=== PATIENT | male | born 2005 | race Caucasian/White ===

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

== ENCOUNTER 2025-04-01 22:09 | Emergency (ER) | payer OTHER, SELFPAY ==
[2025-04-01 22:17] VITALS: BP 162/87; PULSE 88; TEMP 36.8; O2SAT 97; BMI 24.3
--- NOTE | 2025-04-01 22:34 | CT_ITS ---
The [address] [address] Patient Name: WILL ESPITIA MRN: [id number] date: 2005 Sex: M Assigned Patient Location: ER Current Patient Location: ED.MAIN Accession/Order Number: [id number] Exam Date: 04/01/2025 23:02 Report Date: 04/01/2025 23:51 At the request of: TIMI BOWERS MD Procedure: CT head/brain wo con CT BRAIN WITHOUT CONTRAST: CLINICAL HISTORY: hit head on ground while wrestling COMPARISON: None TECHNIQUE: Contiguous axial unenhanced images were obtained through the brain. This CT exam was performed using one or more following dose reduction techniques: Automated exposure control, adjustment of the mA and/or kV according to patient size, or use of iterative reconstruction technique. FINDINGS: There is no evidence of midline shift, intra or extra-axial fluid collection, hemorrhage or CT evidence of of acute large vascular distribution stroke. Visualized intraorbital contents appear unremarkable. Visualized paranasal sinuses are clear. The surrounding soft tissues are normal. CT/CT head/brain wo con IMPRESSION: NO ACUTE INTRACRANIAL ABNORMALITY. Impression dictated by: Ari Grace M.D. 04/01/2025 11:51 PM Dictation Location: [place] [address] Electronically authenticated by: [id number] Y Date: 04/01/2025 23:51
--- NOTE | 2025-04-01 22:34 | XR_ITS ---
The [address] [address] Patient Name: WILL ESPITIA MRN: [id number] date: 2005 Sex: M Assigned Patient Location: ER Current Patient Location: ED.MAIN Accession/Order Number: [id number] Exam Date: 04/01/2025 23:02 Report Date: 04/01/2025 23:51 At the request of: TIMI BOWERS MD Procedure: XR chest 2V PA AND LATERAL CHEST: CLINICAL HISTORY: head injury, chest trauma while wrestling COMPARISON: None FINDINGS: Unremarkable cardiomediastinal silhouette. Lungs clear. No effusion or pneumothorax. Right upper lung calcified granuloma. XR/XR chest 2V IMPRESSION: NO ACUTE CARDIOPULMONARY ABNORMALITY. Impression dictated by: Ari Grace M.D. 04/01/2025 11:51 PM Dictation Location: [place] [address] Electronically authenticated by: [id number] Y Date: 04/01/2025 23:51
--- NOTE | 2025-04-01 22:35 | ED.HEATRA1 ---
HPI HPI - Head Injury General Chief complaint: Head Injury Stated complaint: HEAD INJURY Time Seen by Provider: 04/01/25 22:12 Source: patient Mode of arrival: walk-in Limitations: no limitations History of Present Illness HPI Narrative: This 19-year-old male with no significant medical history is brought to emergency department by his family and friends. The patient and his friends/brother were wrestling in the local park. He was taken down in a wrestling move and fell backwards striking his head on the ground. His brother states that initially he was dazed and then started stuttering. He also struck the right side of his chest on the ground. His friend states that he initially had the wind knocked out of him. He did not have any seizure activity. He did not have any vomiting since then. He has been ambulatory since the fall but due to the stuttering and head injury he was brought to the emergency department for evaluation. He denies any headache. He has no focal neurologic weakness numbness or tingling. He is not confused, has no slurred speech, I do not appreciate any stuttering during my exam. He denies any neck or back pain but states he has some pain in his upper shoulders and right side of his chest. Related Data Home Medications ?Medication ?Instructions ?Recorded ?Confirmed No Known Home Medications 04/01/25 04/01/25 Allergies Allergy/AdvReac Type Severity Reaction Status Date / Time No Known Drug Allergies Allergy Verified 01/12/24 16:08 Opioid HPI Opioid Management Most Recent Pain and Opioid Data: Last Pain Scale 6 04/01/25, 22:21 Review of Systems ROS Status of ROS 10 or more systems reviewed and unremarkable except as noted in history and below PFSH PFS Social History Little interest or pleasure in doing things: not at all Feeling down, depressed, or hopeless: not at all Exam Narrative Exam Narrative: Vital signs and Nursing Notes reviewed: Patient is afebrile with normal pulse, blood pressure is elevated at 162/87, he is not hypoxic with pulse ox of 97 percent on room air General: Awake, alert, oriented, no acute distress, lying comfortably on the stretcher-ECS 15 HEENT: Normocephalic, mild hematoma at posterior occipital aspect of scalp, no active bleeding; below are equal and reactive, extraocular muscles are intact, vision is grossly intact, Neck: Supple, no CHANDLER bony vertebral tenderness or step-off Chest: Lungs are clear to auscultation with good air entry, there is no wheezing rhonchi or rales appreciated no accessory muscle use, patient is speaking in complete sentences-no chest wall tenderness to palpation CVS: Regular rate and rhythm S1-S2, no murmurs rubs or gallops, pulses are brisk and equal bilaterally ABD: Soft, nondistended, nontender, no rebound guarding or rigidity, bowel sounds are normal, no pulsatile masses appreciated Extremities: Moving all extremities, no lower extremity tenderness or swelling noted, negative Homans' sign, pulses are brisk and equal bilaterally Skin: Normal in appearance without rash,pallor, petechiae or purpura Neuro: No focal deficits; speech is clear, I do not appreciate any stuttering, vision is intact, rivet sticker strength is intact, upper and lower extremity strength and sensation is intact, negative pronator drift, positive rapid alternating hand movements, condition is grossly intact Constitutional Vital Signs, click to edit/add: Last Vital Signs Temp 98.3 F 04/01/25 22:17 Pulse 88 04/01/25 22:17 Resp 18 04/01/25 22:17 BP 162/87 H 04/01/25 22:17 Pulse Ox 97 04/01/25 22:17 O2 Del Method Room Air 04/01/25 22:17 Course Vital Signs Vital signs: Vital Signs Temperature 98.3 F 04/01/25 22:17 Pulse Rate 88 04/01/25 22:17 Respiratory Rate 18 04/01/25 22:17 Blood Pressure 162/87 H 04/01/25 22:17 Pulse Oximetry 97 04/01/25 22:17 Oxygen Delivery Method Room Air 04/01/25 22:17 Temperature 98.3 F 04/01/25 22:17 Pulse Rate 88 04/01/25 22:17 Respiratory Rate 18 04/01/25 22:17 Blood Pressure 162/87 H 04/01/25 22:17 Pulse Oximetry 97 04/01/25 22:17 Oxygen Delivery Method Room Air 04/01/25 22:17 MDM - Head Injury MDM Narrative Medical decision making narrative: This 19-year-old male is brought to the emergency department by his friend and family member after they were wrestling in the park and he was taken down in a wrestling move and struck the back of his head. He did not have any loss of consciousness or vomiting after his head injury but his friends/family state that he was stuttering which is unusual for him. In emergency department his neuroexam is normal. His speech was clear without any notable stuttering. He also complained of some right sided chest pain after striking his chest on the ground during the takedown move as well. He does not have any appreciable crepitus or sign of injury in his chest wall. CT scan of the brain was reviewed by radiology and does not show any acute findings and chest x-ray is negative for pneumothorax but does show a calcified granuloma. He was given a copy of both radiographic scan results to share with his PCP. Head injury instructions were given to the patient and his family at the time of discharge. He remains neurologically intact while in the emergency department without any change in his neuroexam or stuttering Discharge Plan Discharge Chief Complaint: Head Injury Clinical Impression: Closed head injury, Calcified granuloma of lung Patient Disposition: Home, Self-Care Time of Disposition Decision: 00:06 Condition: Good Prescriptions / Home Meds: No Action No Known Home Medications Print Language: New Zealander Instructions: Head Injury (ED) Referrals: Physician,Non-Staff, MD [Primary Care Provider] - 1 week
--- OUTSIDE RECORDS SUMMARY | 2025-04-01 23:13 | XMS_ITS | CCD ---
Author Organization [facility] Care Team Providers Care Electromechanical Assembler Name Role Phone ELOY DAVILA Unavailable Unavailable ELOY DAVILA Unavailable Unavailable REQUEST, NONE LISTED Unavailable Unavailable ELOY DAVILA Unavailable Unavailable MONIKANICOLÁS Unavailable Unavailable MONIKANICOLÁS R Unavailable Unavailable MONIKANICOLÁS R Unavailable Unavailable Rogelio Sumner Attending Unavailable Problems Active Problems Problem ClassificationProblemDateDocumented DateEpisodic/ChronicOther upper respiratory disease (4 sources)Allergic rhinitis due to pollen; Translations: [ALLERGIC RHINITIS DUE TO POLLEN]Onset: 37-22-2587Dlrszkl Past or Other Problems Problem ClassificationProblemDateDocumented DateEpisodic/ChronicOther lower respiratory disease (3 sources)Cough; Translations: [COUGH]Onset: 96-02-0660LohhihvkQqyie upper respiratory infections (1 source)Acute upper respiratory infection, unspecified; Translations: [ACUTE UP RESPIRATORY INFECTION UNS]Onset: 42-22-1506PbqflieqSjozz infection (1 source)Viral infection, unspecified; Translations: [VIRAL INFECTION UNSPECIFIED]Onset: 93-66-1381Deocpzrv Results Test NameValueInterpretationReference RangeFacilityConsent for Treatmenton 99-80-8822Ouvvecm for [id number]#1.00TIFF [facility] HospitalDischarge Instructionson 10-77-9890Yxijurxks [id number]#1.00TIFFNormElyria Memorial Hospital Clinical Summaryon [id number] Clinical Summary [address] [address] ED Clinical Summary Person Information Name: WILL ESPITIA Mendy/SkipWesley Age: 18 Years : 2005 Sex: Male Language: Faroese PCP: NONE, XXXX Marital Status: Single Visit Id: Visit Reason: Trauma - minor; Finger pain-swelling; RIGHT INDEX FINGER INJURY Speciality: Acuity: 4 Enc Type: Emergency Med Service: Emergency Arrival: 06/10/2023 12:34:23 Discharge: 06/10/2023 13:46:33 LOS: 000 01:12 Checkin: 06/10/2023 12:34:23 Checkout: 06/10/2023 13:46:33 Dispo Type: Home (Routine DC) EVENTS: Event Name Event Status Request Date/Time Start Date/Time Complete Date/Time Arrive Complete 06/10/2023 12:34:23 06/10/2023 12:34:23 06/10/2023 12:34:23 Document Home Meds Request 06/10/2023 12:34:23 Triage Complete 06/10/2023 12:34:23 06/10/2023 12:41:34 06/10/2023 12:41:34 Bed Assign Complete 06/10/2023 12:38:39 06/10/2023 12:38:39 06/10/2023 12:38:39 Dr Exam Complete 06/10/2023 12:38:39 06/10/2023 13:06:12 06/10/2023 13:06:12 RN Exam Complete 06/10/2023 12:38:39 06/10/2023 12:43:55 06/10/2023 12:43:55 Registration Complete 06/10/2023 12:39:50 06/10/2023 12:39:50 06/10/2023 12:39:50 Reg Complete Request 06/10/2023 12:39:50 Reg Bed Request Complete 06/10/2023 12:39:50 06/10/2023 12:39:50 06/10/2023 12:39:50 X-Ray Complete 06/10/2023 13:01:33 06/10/2023 13:05:47 06/10/2023 13:15:10 Registration Request 06/10/2023 13:06:12 Dr Exam Complete 06/10/2023 13:06:24 06/10/2023 13:06:24 06/10/2023 13:06:24 Wet Read Request 06/10/2023 13:15:10 Discharge Complete 06/10/2023 13:35:28 06/10/2023 13:46:39 06/10/2023 13:46:39 Transfer Complete 06/10/2023 13:46:39 06/10/2023 13:46:39 06/10/2023 13:46:39 ADDRESS: [facility] [facility] [id number] PHYS DOC NOTES: MEDICAL INFORMATION: Prescriptions Given: PATIENT EDUCATION INFORMATION: Instructions: How to Use Cold Therapy, Jgag-jl-Zhlm; Contusion, Whdu-zy-Pazc Follow up: With: Address: When: Corey Dennison [address] [place], [place] [id number] In 3 days 06/13/2023 Comments: Follow-up with your primary care provider in 3 to 5 days. If symptoms worsen, do not improve, or new symptoms arise please report back to emergency department for further evaluation. DIAGNOSIS: Contusion of right index fingerMatheusmaria fernandaGregmiguel Ferdinand Medical CenterED Note-Physicianon [id number] Note-PhysicianBasic Information Time Seen: Donn Khoury PA-C 06/10/2023 13:06 Chief Complaint c/o right index finger after smashing it with a hammer at school. History of Present Illness 18-year-old male reports to the emergency department with chief complaint of right index finger injury. Reports that he accidentally smashed it with a hammer while at school. Reports that he tried touse his left hand to hit the nail, but hit his finger. States that he is not very good with swinging a hammer with his left hand. He reports that he is right-handed. Denies any medications. Reports he went to get checked out. Denies any bleeding. States as of the end of his finger that hurts. Review of Systems A 10 point review of systems is negative except as noted above. Medical and Surgical History: Reviewed and noted Social history: Lives at home Family History: Reviewed. Tobacco: denies Physical Exam Vitals & Measurements T: 36.8 ?C(Oral) HR: 69(Peripheral) RR: 16 BP: 143/79 SpO2: 99% HT: 170 cm WT: 63.5 kg BMI: 21.97 General: The patient appears well and in no apparent distress. Patient is resting comfortably in chair. Afebrile Skin: Warm, dry, no pallor noted. Mild ecchymosis located on the distal tip of the right index finger. No lacerations noted. Head: Normocephalic, atraumatic Neck: No JVD Eye: PERRLA, EOMI ENT: Moist mucus membranes Cardiovascular: Regular rate normal peripheral perfusion. Cap refill brisk. Radial pulses +2 bilaterally Respiratory: No respiratory distress no accessory muscle use no obvious audible wheezing Chest Wall: no deformity Musculoskeletal: normal ROM, no deformity, no swelling. No tendon defects noted. Pain on palpation on the distal tip of the right index finger. No other tenderness noted elsewhere. GI: No obvious distention Neurological: A&O moves all extremities equal strength and symmetry Psychiatric: Cooperative and appropriate Medical Decision Making MEDICAL DECISION MAKING Number and Complexity of Problems Differential Diagnosis: [] [facility] Data External documents reviewed: [] My EKG interpretation: [] My CT interpretation: [] My X-ray interpretation: reviewed My Ultrasound interpretation: [] Decision rules/scores evaluated: [] Discussed with: [] Treatment and Disposition ED Course: 18-year-old male reports to the emergency department with chief complaint of injury of his right index finger. Reports that he was using a hammer, actually smashed his finger. Reports he is right-handed. No lacerations or abrasions noted. Mild ecchymosis and tenderness noted. He is otherwise neurovascular intact with no tendon defects. Due to concerns we did do the x- ray. X-ray was negative. Discussed this with the patient. Continue to rest, ice, compress, and elevate your affected joint to relieve inflammation and swelling. You may also take ibuprofen and Tylenol to help with pain. Follow-up with your primary care provider in 3 to 5 days. If symptoms worsen, do not improve, or new symptoms arise please report back to emergency department for further evaluation. The patient wasunderstanding and agreeable to plan moving forward. Shared decision making: [] Code status: [] Assessment/Plan Contusion of right index finger (S60.021A: Contusion of right index finger without damage to nail, initial encounter) Disposition Plan Patient Discharge Condition Stable Discharge Disposition to home Discharge Prescription List Prescriptions No active prescription medications Follow-up With When Contact Information Corey Dennison In 3 days 06/13/2023 EST [address] [place] [address] Additional Instructions: Follow-up with your primary care provider in 3 to 5 days. If symptoms worsen, do not improve, or new symptoms arise please report back to emergency department for further evaluation. Patient Education How to Use Cold Therapy, Uwdy-qg-Aovj Contusion, Elio-aw-Szdp Attestation Patient seen and evaluated by the physician appeals assistant. Attending physician was present in the emergency department and supervised care. This visit was performed by both the physician and an APC. I performed all aspects of the MDM as documented. This report was transcribed using voice recognition software. Every effort was made to ensure accuracy, however, inadvertently computerized hand wrapper operator mistakes may be present. Appropriate healthcare PPE was used in evaluating this patient. The patient was placed in a mask. The healthcare provider was wearing mask, gloves, and utilizing proper hand hygiene. All equipment was properly cleansed. I performed a substantive part of the MDM during the patient?s E/M visit. I personally made or approved the documented management plan and acknowledge its risk of complications. (Independent Interpretation) My (EKG/X-Ray/US/CT as applicable) interpretation as above. (Discussion) Management/test interpretation discussed with APC. Problem List (more content not included)...[facility] Comment on above:Result Comment: Electronically Signed By: Donn Khoury PA-C\.br\Date and Time Signed: 06/10/2413:50 EST\.br\Electronically Co-Signed By: Rogelio Sumner M.D..br\Date and Time Co-Signed: 06/10/23 15:33 ESTED Patient Education Noteon [id number] Patient Education NoteOrthopedics How to Use Cold Therapy Cold therapy, or cryotherapy, is a treatment that uses cold temperatures to treat an injury or medical condition. It includes using cold packs or ice packs to reduce pain and swelling. Only use cold therapy if your doctor says it is okay. What are the risks? Generally, cold therapy is a safe treatment. However, it is not safe for: ? People who are not able to say they are in pain. These include small children and people who havememory problems. ? People who have certain conditions, such as: ? A problem in the vessels that slows blood flow to the fingers and toes (Raynaud's syndrome). ? Feeling very cold easily (cold hypersensitivity). ? Lack of feeling in the area being iced. Cold therapy may not be safe for people who have other conditions. Do not use it without talking toyour doctor if you have: ? A heart condition. ? High blood pressure. ? Open or healing wounds. ? An infection. ? Pain and swelling in your joints (rheumatoid arthritis). ? Poor blood flow in the body. ? Diabetes. ? Certain skin conditions. How do I make a cold pack? When using a cold pack at home to reduce pain and swelling, you can use: ? A silica gel cold pack that has been left in the freezer. You can buy this online or in stores. ? A sealable plastic bag that has been filled with crushed ice. ? A washcloth or paper towels soaked in cold water or ice water. ? A plastic bag of frozen vegetables. Throw them away when you are finished using them as a cold pack. Supplies needed: ? A cold pack. ? A towel. This can be dry or damp, based on what you like. How to use cold therapy 1. Have your cold pack ready. 2. Place a towel between the cold pack and your skin. You may also wrap the cold pack in a towel. 3. Put the cold pack on the affected area. Keep it on for no more than 20 minutes at a time. 4. Check your skin after 5 minutes to make sure that there is no damage to the area. Check for: ? White spots on your skin. Your skin may look blotchy or mottled. ? Skin that looks blue or pale. ? Skin that feels waxy or hard. 5. Repeat these steps as many times each day as told by your doctor. Take off the ice if your skin turns bright red. This is very important. If you cannot feel pain, heat, or cold, you have a greater risk of damage to the area. Always use a towel to avoid direct contact with your skin. Contact a doctor if: ? You start to have white spots on your skin. This may give your skin a blotchy or mottled look. ? Your skin turns blue or pale. ? Your skin becomes waxy or hard. ? Your swelling gets worse. Summary ? Cold therapy, or cryotherapy, is used to treat an injury or other conditions. It includes using cold packs or ice packs to reduce pain and swelling. ? Cold therapy is not safe for people who are not able to say they are in pain. ? When using cold packs or ice packs, always place a towel between the cold source and your skin. ? Check your skin after 5 minutes of icing it. This is to make sure that there is no skin damage. ? Contact your doctor if you notice changes in your skin or your swelling gets worse. This information is not intended to replace advice given to you by your health care provider. Make sure you discuss any questions you have with your health care provider. Document Revised: 03/11/2021 Document Reviewed: 03/11/2021 [employer] Patient Education ? 2022 [employer] Contusion A contusion is a deep bruise. This is a result of an injury that causes bleeding under the skin. Symptoms of bruising include pain, swelling, and discolored skin. The skin may turn blue, purple, or yellow. Follow these instructions at home: Managing pain, stiffness, and swelling You may use RICE. This stands for: ? Resting. ? Icing. ? Compression, or putting pressure. ? Elevating, or raising the injured area. To follow this method, do these actions: ? Rest the injured area. ? If told, put ice on the injured area. ? Put ice in a plastic bag. ? Place a towel between your skin and the bag. ? Leave the ice on for 20 minutes, 2?3 times per day. ? If told, put light pressure (compression) on the injured area using an elastic bandage. Make surethe bandage is not too tight. If the area tingles or becomes numb, remove it and put it back on as told by your doctor. ? If possible, raise (elevate) the injured area above the level of your heart while you are sittingor lying down. General instructions ? Take zmvi-yna-xbovbeq and prescription medicines only as told by your doctor. ? Keep all follow-up visits as told by your doctor. This is important. Contact a doctor if: ? Your symptoms do not get better after several days of treatment. ? Your symptoms get worse. ? You have trouble moving the injured area. Get help right away if: ? You have very bad pain. ? You have a loss of feeling (numbness) (more content not included)...[facility] Patient Summaryon [id number] Patient Summary [place] [id number] Patient Discharge Instructions Person Information Name: WILL ESPITIA Age: 18 Years Arrival Date: 06/10/2023 12:34:23 Discharge Diagnosis: Contusion of right index finger Primary Care Physician: NONE, XXXX Provider Information Primary Provider: Rogelio Sumner M.D. Advanced Branch Billing Payroll Clerk:None The exam and treatment you received in the Emergency Department were for an urgent problem and are not intended as complete care. It is important that you follow up with a doctor, nurse practitioner,or physician?s appeals assistant for ongoing care. If your symptoms become worse or you do not improve as expected and you are unable to reach your usual health care provider, you should return to the Emergency Department. We are available 24 hours a day. WILL ESPITIA has been given the following list of patient education materials, prescriptions and follow-up instructions: Follow-up Instructions: With: Address: When: Corey Mcduffieglenmonika [address] [place], [place] [id number] In 3 days 06/13/2023 Comments: Follow-up with your primary care provider in 3 to 5 days. If symptoms worsen, do not improve, or new symptoms arise please report back to emergency department for further evaluation. In the event that this physician does not participate in your insurance network, please consult with your insurance company to find a nearby participating provider. Patient Education Materials: How to Use Cold Therapy, Skol-wd-Twjn; Contusion, Kmna-on-Czfd A MESSAGE TO ALL PATIENTS REGARDING OPIOIDS PRESCRIPTION OPIOIDS: WHAT YOU NEED TO KNOW Prescription opioids can be used to help relieve ixgrzhod-wq-vsnzha pain and are often prescribed following a surgery or injury, or for certain health conditions. These medications can be an important part of the treatment but also come with serious risks. It is important to work with your healthcare provider to make sure you are getting the safest, most effective care. WHAT ARE THE RISKS AND SIDE EFFECTS OF OPIOID USE? Prescription opioids carry serious risks of addiction and overdose, especially with prolonged use. An opioid overdose, often marked by slowed breathing, can cause sudden . The use of prescription opioids can have a number of side effects as well, even when taken as directed: ? Tolerance?meaning you might need to take more of the medication for the same pain relief ? Physical dependence?meaning you have symptoms of withdrawal when a medication is stopped ? Increased sensitivity to pain ? Constipation ? Nausea, vomiting, and dry mouth ? Sleepiness and dizziness ? Confusion ? Depression ? Low levels of testosterone that can result in lower sex drive, energy, and strength ? Itching and sweating RISKS ARE GREATER WITH: ? History of drug misuse, substance use disorder, or overdose ? Mental health conditions (such as depression or anxiety) ? Sleep apnea ? Older age (65 years and older) ? Avoid alcohol while taking prescription opioids. Also, unless specifically advised by your health care provider, medications to avoid include: ? Benzodiazepines (such as Xanax or Valium) ? Muscle relaxants (such as Soma or Flexeril) ? Hypnotics (such as Ambien or Lunesta) ? Other prescription opioids KNOW YOUR OPTIONS Talk to your health care provider about ways to manage your pain that don?t involve prescription opioids. Some of these options may actually work better and have fewer risks and side effects. Optionsmay include: ? Pain relievers such as acetaminophen, ibuprofen, and naproxen ? Some medication that are also used for depression or seizures ? Physical therapy and exercise ? Cognitive behavioral therapy, a psychological, goal-directed approach, in which patients learn how to modify physical, behavioral, and emotional triggers of pain and stress. IF YOU ARE PRESCRIBED OPIOIDS FOR PAIN: ? Never take opioids in greater amounts or more often than prescribed. ? Follow up with your primary health care provider. o Work together to create a plan on how to manage your pain. o Talk about ways to help manage your pain that don?t involve prescription opioids. o Talk about any and all concerns and side effects. ? Help prevent misuse and abuse o Never sell or share prescription opioids. o Never use another person?s prescription opioids. ? Store prescription opioids in a secure place and out of reach of others (this may include visitors, children, friends, and family). ? Safely dispose of unused prescription opioids: Find your community drug take- back program or [employer] mail-back program, or flush them down the toilet, following guidance from the Food and Drug Administration (www.fda.gov/Drugs/ResourcesForYou). ? Visit www.cdc.gov/drugoverdose to learn about the risks of opioids abu (more content not included)...[facility] Min 2 Views Righton [id number] Finger(s) Min 2 Views RightExam Date/Time: 06/10/2023 13:15 EST Reason for Exam: Pain, Traumatic Report IMPRESSION: NO ACUTE OSSEOUS ABNORMALITY. EXAMINATION: XR Finger(s) Min 2 Views Right HISTORY: Finger pain after injury. COMPARISON: None available TECHNIQUE: AP, lateral, and oblique views of the second digit of the right hand FINDINGS: No acute fracture or dislocation. Soft tissues are within normal limits. Ordering Provider: Ed Braga FINAL REPORT Dictated: 06/10/2023 1:35 pm Corey Reyes DO Signed (Electronic Signature): 06/10/2023 1:35 pm Signed by: Corey Reyes DO Transcribed by: SHARONDA Technologist: KAREEM Technical Comments Radiation Dose: ruslan Hawthorne in mGy = na DAP = naNorWilson HealthCULTURE THROATon [id number] THROATCulture Observations: MODERATE GROWTH OF STAPHYLOCOCCUS AUREUS. ALFREDA TO FOLLOW.Isolate 1STAPHYLOCOCCUS AUREUSMODERATE GROWTH OFORGANISM 1 STAPHYLOCOCCUS AUREUSANTIBIOTIC M.I.C RX STATUSBenzylpenicillin R FCiprofloxacin S FClindamycin R FErythromycin R FGentamicin S FInducible Clindamycin Resistance P OS FLevofloxacin S FLinezolid S FMoxifloxacin S FNitrofurantoin S FOxacillin S FQuinupristin/Dalfopristin S FRifampicin S FTetracycline S FTigecycline S FTrimethoprim/Sulfamethoxazole S FVancomycin [facility] Comment on above:Performed By: #### THRTCX ####[facility] [address] [place], [place] [address]AittncDarlene Mckeon Encounters Encounter DateEncounter [facility] ProviderFacilityStart: 06-10-2023 End: 12-43-1428Hxudwfchv department patient visitAstrit H HajdariFacility:[facility] [place] Start: 01-11-2018 End: 80-37-3361Uyxwaag encounterDAWN Ruslan BOVAFacility:U6Hczvv: 07-05-2017 End: 50-75-2096Tcedhkj encounterSTEPHEN Delores REINECKFacility:H1 Payers DatePayer CategoryPayerPolicy [id number] Summary Purpose Family History No Family History Records FoundNo Family History Records Found Advance Directives No Advanced Directives Records FoundNo Advanced Directives Records Found Additional Source Comments (unrecognized sect ion and content) No Status Records FoundNo Status Records Found INFORMATION SOURCE (unrecogn ized section and content) DATE CREATED AUTHOR 02/14/2018 [facility] DATE CREATED AUTHOR AUTHOR'S ORGANIZ ATION 06/11/2023 [facility] FOR RECORDS PERTAINING TO PATIENTS WHO ARE OR HAVE BEEN ENROLLED IN A CHEMICAL DEPENDENCY/SUBSTANCEABUSE PROGRAM, SOME INFORMATION MAY BE OMITTED. This clinical summary was aggregated from multiple sources. Caution should be exercised in using it in the provision of clinical care. This summary normalizes information from multiple sources, and as a consequence, information in this document may materially change the coding, format and clinical context of patient data. In addition, data may be omitted in some cases. CLINICAL DECISIONS SHOULD BE BASED ON THE PRIMARY CLINICAL RECORDS. [employer] [facility]. provides no warranty or guarantee of the accuracy or completeness of information in this document.
--- OUTSIDE RECORDS SUMMARY | 2025-04-01 23:15 | XMS_ITS | Clinical Summary ---
Author Organization [facility] Address [address] [place] [address] Phone Care Team Providers Care Automobile Body Worker Name Role Phone Dennis Puentes DO Primary Care Provider Social History Tobacco UseTypesPacks/DayYears UsedDateSmoking Tobacco: Never AssessedSex and Gender InformationValueDate RecordedSex Assigned at BirthNot on fileLegal Sex Male04/03/2022 4:34 AM ESTGender IdentityNot on fileSexual OrientationNot on file Last Filed Vital Signs Vital SignReadingTime TakenCommentsBlood Xbwrfprf070/5202/26/2015 11:55 AM EDT Pulse--Temperature--Respiratory Rate--Oxygen Saturation--Inhaled Oxygen Concentration--Nzeetk25.1 kg (59 lb 11.9 oz)02/26/2015 11:55 AM IJQPgitok652.7 cm (4' 4.24 )02/26/2015 11:55 AM EDTBody Mass Index15.391 11:55 AM EDT Body Mass Index Ynhrbqfgfj71.85%02/26/2015 11:55 AM EDTGrowth Chart: CDC (Boys, 2-20 Years) Plan of Treatment Health MaintenanceDue DateLast DoneCommentsHIV Zazoludia40/25/2006Lipid Panel 2005Yearly Adult Mxaisrnu72/25/2006MMR Vaccines (1 of 1 - Standard series) 2006Hearing Screening (#1)2009DTaP/Tdap/Td Vaccines (1 - Tdap) 2012HPV Vaccines (1 - Male 3-dose series)2020Meningococcal B Vaccine (1 of 2 - Standard)2021Hepatitis C Iktkejjwz91/25/2024Hepatitis B Vaccines (1 of 3 - 19+ 3-dose series)2024Influenza Vaccine (#1)2024OVID-19 Vaccine (1 - season)2025Zoster Vaccines (1 of 2)2055HIB VaccinesAged OutNo longer eligible based on patient's age to complete this topic Hepatitis A VaccinesAged OutNo longer eligible based on patient's age to complete this topicIPV VaccinesAged OutNo longer eligible based on patient's age to complete this topicMeningococcal VaccineAged OutNo longer eligible based on patient's age to complete this topicPneumococcal Vaccine: Pediatrics and At-Risk Adult PatientsAged OutNo longer eligible based on patient's age to complete this topicRotavirus VaccinesAged OutNo longer eligible based on patient's age to complete this topic Care Teams Team MemberRelationshipSpecialtyStart DateEnd Date Dennis Puentes DO [address] [place] [id number] [facility] - General07/13/10
[2025-04-02 00:20] VITALS: BP 138/87; PULSE 87; O2SAT 98
== END 2025-04-02 00:21 | disposition home or self-care (01) ==
PROVIDERS: Emergency Provider Emergency Medicine
DX: S09.8XXA Other specified injuries of head, initial encounter (principal); Y93.72 Activity, wrestling; J98.4 Other disorders of lung
CPT/HCPCS: 70450; 71046; 99284